=== PATIENT | male | born 1960 | race African-American/Black ===

== ENCOUNTER 2020-03-02 17:55 | Emergency (ER) | payer OTHER ==
[~2020-03-02] VITALS: Ht 193 cm; Wt 77.1 kg
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
[2020-03-02] MEDS ORDERED: TRAMADOL HCL 50 MG TABLET ONE (18:30)
[2020-03-02] MEDS ORDERED: TRAMADOL HCL 50 MG TABLET PO ONE (18:30)
--- NOTE | 2020-03-02 18:37 | NUR ---
LEONCIO AT BEDSIDE SPEAKING TO PT.
--- NOTE | 2020-03-02 19:45 | NUR ---
Patient discharged to home in stable condition. Written and verbal after care instructions given. Patient verbalizes understanding of instruction. ambulatory with a steady gait. noted. pt aaox4 no acute distress noted, resp even and unlabored.
[2020-03-02 19:48] VITALS: BP 139/76
== END 2020-03-02 19:49 | disposition home or self-care (01) ==
LOC: ER 17:59
DX: M79.631 Pain in right forearm (principal)
CPT/HCPCS: 73070-TC; 73090-TC